=== PATIENT | female | born 1985 | race Caucasian/White ===

== ENCOUNTER → 2016-06-14 | Outpatient (CLI) | payer OTHER | LOC: HPND 08:34 | PROVIDERS: ATTEND Obstetrics & Gynecology | DX: O35.2XX0 Maternal care for (suspected) hereditary disease in fetus, not applicable or unspecified (principal); O99.282 Endocrine, nutritional and metabolic diseases complicating pregnancy, second trimester; E03.9 Hypothyroidism, unspecified; Z86.711 Personal history of pulmonary embolism; Z36 Encounter for antenatal screening of mother; Z3A.20 20 weeks gestation of pregnancy | CPT/HCPCS: 76811 ==

== ENCOUNTER → 2016-07-12 | Outpatient (CLI) | payer OTHER, MEDICAID | LOC: HPND 09:05 | PROVIDERS: ATTEND Obstetrics & Gynecology | DX: O35.2XX0 Maternal care for (suspected) hereditary disease in fetus, not applicable or unspecified (principal) | CPT/HCPCS: 76816; 76825; 76827; 93325 ==

== ENCOUNTER → 2016-08-09 | Outpatient (CLI) | payer OTHER, MEDICAID | LOC: HPND 09:02 | PROVIDERS: ATTEND Obstetrics & Gynecology | DX: O35.2XX0 Maternal care for (suspected) hereditary disease in fetus, not applicable or unspecified (principal); Z3A.00 Weeks of gestation of pregnancy not specified | CPT/HCPCS: 76816 ==

== ENCOUNTER 2017-11-01 05:06 | Inpatient (IN) | payer OTHER ==
[~2017-11-01] VITALS: Ht 157.5 cm; Wt 144.3 kg
[~2017-11-01 05:06] MED LIST: LEVO75TA3 PO; VITA100064 PO
[2017-11-01] MEDS ORDERED: METOPROLOL TARTRATE 25 MG TAB PO PRN (05:30)
[2017-11-01] MEDS ORDERED: ceFAZolin 3,000 MG/NS 100 ML (if >120 kg) IV SCH ×2 (05:30)
[2017-11-01] MEDS ORDERED: POVIDONE IODINE 5% (ANTISEPSIS KIT) 4 APPLICATIONS EACH NARE PRN (05:30)
[2017-11-01] MEDS ORDERED: SODIUM CHLORID 0.9% 500 ML IV PRN (05:30)
[2017-11-01] MEDS ORDERED: SCOPOLAMINE 1.5 MG PATCH T-DERMAL SCH (05:30)
[2017-11-01] MEDS ORDERED: metroNIDAZOLE 500 MG INJ 100 ML IV SCH ×2 (05:30→16:00)
[2017-11-01] MEDS ORDERED: ACETAMINOPHEN 1000 MG/100 ML 100 ML IV SCH (05:30)
[2017-11-01] MEDS ORDERED: LACTATED RINGER'S 1000 ML IV PRN (05:30)
[2017-11-01] MEDS ORDERED: CHLORHEXIDINE GLUCONATE 2 % 1 PACK (2 CLOTHS) TOPICAL PRN (05:30)
[2017-11-01] MEDS ORDERED: APREPITANT 40 MG CAP PO SCH (05:30)
[2017-11-01] MEDS ORDERED: ONDANSETRON HCL 4 MG/2 ML VIAL IV PUSH SCH (05:30)
[2017-11-01] MEDS ORDERED: ONDANSETRON ODT 4 MG TAB ONE (07:29)
[2017-11-01] MEDS ORDERED: PROPOFOL 500 MG/50 ML INJ 0 ML ONE (09:10)
[2017-11-01] MEDS ORDERED: DEXMEDETOMIDINE HCL 200 MCG/2 ML VIAL ONE (09:11)
[2017-11-01] MEDS ORDERED: KETAMINE HCL 50 MG/5 ML SYRINGE ONE ×2 (09:11)
[2017-11-01] MEDS ORDERED: diphenhydrAMINE HCL 50 MG/ML VIAL ONE (11:08)
[2017-11-01] MEDS ORDERED: ceFAZolin INJ 1,000 MG VIAL ONE (11:12)
[2017-11-01] MEDS ORDERED: ceFAZolin 2 GM PREMIX 50 ML ONE (11:12)
[2017-11-01] MEDS ORDERED: KETOROLAC TROMETHAMINE 30 MG/ML (IVP) VIAL IV PUSH ONE (12:00)
[2017-11-01] MEDS ORDERED: GLYCOPYRROLATE 1 MG/5 ML SYRINGE IV PUSH ONE (12:00)
[2017-11-01] MEDS ORDERED: LIDOCAINE HCL 1% PF 5 ML SYRINGE OTHER ONE (12:00)
[2017-11-01] MEDS ORDERED: ONDANSETRON HCL 4 MG/2 ML VIAL IV PUSH ONE (12:00)
[2017-11-01] MEDS ORDERED: LACTATED RINGER'S 1000 ML INJ 1,000 ML IV ONE (12:00)
[2017-11-01] MEDS ORDERED: VECURONIUM BROMIDE 20 MG VIAL IV ONE (12:00)
[2017-11-01] MEDS ORDERED: ROCURONIUM INJ 50 MG/5 ML SYRINGE IV PUSH ONE (12:00)
[2017-11-01] MEDS ORDERED: DEXAMETHASONE SOD PHOS 4 MG/ML VIAL IV ONE (12:00)
[2017-11-01] MEDS ORDERED: NEOSTIGMINE 5 MG/5 ML SYRINGE IV PUSH ONE (12:00)
[2017-11-01] MEDS ORDERED: NORMOSOL R INJ 1,000 ML IV ONE (12:00)
[2017-11-01] MEDS ORDERED: ePHEDrine/NS 25 MG/5 ML SYRINGE IV ONE (12:00)
[2017-11-01] MEDS ORDERED: SUCCINYLCHOLINE CHLORIDE 100 MG/5 ML SYRINGE IV PUSH ONE (12:00)
[2017-11-01] MEDS ORDERED: PROPOFOL 200 MG/20 ML AMP IV ONE (12:00)
[2017-11-01] MEDS ORDERED: PROPOFOL 500 MG/50 ML INJ 150 ML ONE (14:26)
[2017-11-01] MEDS ORDERED: Post-op Orders (for Pharmacy) OTHER ONE (15:30)
[2017-11-01] MEDS ORDERED: MIDAZOLAM HCL 2 MG/2 ML VIAL ONE (15:49)
[2017-11-01] MEDS ORDERED: MORPHINE SULFATE 30 MG/30 ML PCA ONE (15:52)
[2017-11-01] MEDS ORDERED: MORPHINE SULFATE 30 MG/30 ML PCA IV SCH (16:00)
[2017-11-01] MEDS ORDERED: diphenhydrAMINE HCL ELIXIR 12.5 MG/5 ML CUP PO PRN (16:00)
[2017-11-01] MEDS ORDERED: ACETAMINOPHEN 325MG/HYDROcodone 7.5MG/15ML UDC PO PRN (16:00)
[2017-11-01] MEDS: 1/2 NS + KCL 20 MEQ INJ 1,000 ML IV SCH ×2 (16:00→20:47)
[2017-11-01] MEDS ORDERED: SODIUM CHLORIDE 0.9% FLUSH 10 ML FLUSH IV FLUSH PRN (16:00)
[2017-11-01] MEDS ORDERED: NALOXONE HCL 0.4 MG/ML AMP IV PUSH PRN (16:00)
[2017-11-01] MEDS: RESP: ALBUTEROL 2.5 MG/3 ML NEB (SCH) INH ×3 (16:00→23:19)
[2017-11-01] MEDS ORDERED: diphenhydrAMINE HCL 50 MG/ML VIAL IV PUSH PRN (16:00)
[2017-11-01] MEDS ORDERED: ENALAPRILAT 1.25 MG/ML VIAL IV PUSH PRN (16:00)
[2017-11-01] MEDS ORDERED: *MEPERIDINE 25 MG INJ VIAL PERIprocedural Use ONLY ONE (16:02)
[2017-11-01] MEDS ORDERED: *morphine SULFATE 4 MG/ML PERIprocedure ONLY ONE (16:03)
[2017-11-01] MEDS ORDERED: ONDANSETRON ODT 4 MG TAB PO PRN (16:15)
[2017-11-01] MEDS: METOCLOPRAMIDE HCL 10 MG/2 ML VIAL IV PUSH SCH ×2 (17:00→20:46)
[2017-11-01] MEDS ORDERED: DO NOT ADM ANY ANTICOAGULANT DRUGS PRN (17:15)
[2017-11-01] MEDS ORDERED: *RESP: ALBUTEROL 2.5 MG/3 ML NEB (PRN) PERIprocedural Use ONLY NEB ONE (17:15)
--- NOTE | 2017-11-01 18:05 | MP ---
cc: Nish Rivas MD DATE OF OPERATION: 11/01/2017 PREOPERATIVE DIAGNOSIS: Super obesity with a body mass index of 58. POSTOPERATIVE DIAGNOSIS: Super obesity with a body mass index of 58. PROCEDURE PERFORMED: Laparoscopic duodenal switch, 150 cm alimentary tract, 120 cm common channel. SURGEON: Nish Rivas MD SAFETY PIN ASSEMBLING MACHINE OPERATOR: Jared Cottrell. Dr. Cottrell's assistance was necessary for the procedure due to the complexity of the procedure. Dr. Cottrell assisted with manipulation and exposure during the procedure. Dr. Cottrell was present for the entire procedure. ANESTHESIA: General endotracheal anesthesia. ESTIMATED BLOOD LOSS: 10 mL FINDINGS: Fatty liver. SPECIMENS: None. COMPLICATIONS: None. OPERATION IN DETAIL: The patient was brought to the operating room and placed on the operating table in a supine position. A bilateral sequential inflation device was placed on the lower extremities. General anesthesia was instituted. A Cross catheter was placed. Antibiotics were initiated. The abdomen was prepped and draped sterilely. A point in the periumbilical region was anesthetized with 0.25% Marcaine with epinephrine. A skin incision was made. A 5 mm Optiview port was placed under direct vision and pneumoperitoneum created. Under direct vision two 12 mm left upper quadrant and a 5 mm left lower quadrant port was placed. Two 12 mm right upper quadrant ports and a 5 mm epigastric port were placed. Prior to placement of all ports the skin and peritoneum were anesthetized with 0.25% Marcaine with epinephrine. The patient was placed in reverse Trendelenburg position. A Staci-Flex retractor was placed and the left lobe of the liver was retracted. The falciform ligament was taken out of the field using a 2-0 nylon suture. Attention was focused on the duodenum. The pylorus was identified. A point 3 cm distal along the duodenum was identified. The peritoneum both medially and laterally along the duodenal bulb was dissected minimally using the Harmonic scalpel. The posterior duodenal space was further dissected using a Gold Finger followed by the laparoscopic band passer. The duodenum was then stapled 3 cm distal to the pylorus using the [place] Flex power stapler blue load. Bleeding points were controlled using the Harmonic. Attention was then focused on the stomach. The patient was placed with her left side up. The vasculature along the greater curvature of the stomach was using the Harmonic scalpel starting a distance of approximately 10 cm proximal to the pylorus. This was carried towards the angle of His. The angle of His was taken down sharply. The posterior ligamentous attachment was sharply . A 36-[place] ViSiGi bougie was placed at the start of the case. Division of the stomach was then started approximately 10 cm proximal to the pylorus. This was performed using an [place] Flex stapler. This was carried towards the angle of His to excise approximately 60% of the stomach. The bougie was used as a guide and the stapler at no point was hugging the bougie. The first firing was with a green load followed by three gold loads. All staple loads were reinforced with Seamguard. The gastrocolic ligament was then sutured to the posterior leaflet of the Seamguard. Attention was then focused on the lower abdomen. The patient was placed in Trendelenburg position. The ileocecal valve was identified. The bowel was measured proximally from the ileocecal valve to a distance of 120 cm. This was to be the common channel. This was marked with hemoclips. The regimen was carried further from this rosa another 150 cm proximally. The small bowel was divided in this region using an [place] Flex stapler white load. The distal segment was marked. It was then brought up to the duodenum and a duodenoileostomy was created using a single layer handsewn anastomosis. The biliopancreatic limb was then brought down to the clips that were marked initially at 120 cm and a ileoileostomy was created using an [place] Flex stapler white load. Two firings were taken, one proximally and one distally to create the anastomosis. The defect was then closed in a single layer of running 2-0 Vicryl. The defect at the ileostomy in the mesentery was then closed with 2-0 silk suture in a running manner. Attention was then focused back at the duodenoileostomy. The bowel was clamped distal to the anastomosis. Methylene blue diluted with saline was instilled through the ViSiGi. The stomach was distended as well as the proximal bowel with no evidence of extravasation. A 18F round ROSAURA was placed posterior to the gastrojejunostomy and pulled out through the 5 mm port site in the left upper quadrant. Evicel was then placed over the duodenoileostomy and ileoileostomy. The Staci-Flex retractor was then removed. The CO2 was released. All ports were removed. All skin incisions were closed with 4-0 Monocryl. The patient was awakened and taken to the recovery room stable. MD MED Gary/ALVINO , 05:46 PM , 06:03 PM ERLIN
[2017-11-01 20:00] VITALS: BP 129/77; PULSE 63; RESP 15; TEMP 97.4; O2SAT 91
[2017-11-01] MEDS: ENOXAPARIN SODIUM 40 MG/0.4 ML SYRINGE SQ SCH ×2 (20:00→20:45)
[2017-11-01] MEDS: metroNIDAZOLE 500 MG INJ 100 ML IV SCH (20:43)
[2017-11-01] MEDS: SODIUM CHLORIDE 0.9% FLUSH 10 ML FLUSH IV FLUSH SCH (20:44)
[2017-11-01] MEDS: ACETAMINOPHEN 1000 MG/100 ML 100 ML IV SCH (20:44)
[2017-11-01 21:47] VITALS: O2SAT 98
[2017-11-01] MEDS: PCA - TOTAL MG MORPHINE DELIVERED PER SHIFT SCH (22:00)
[2017-11-02] VITALS (8 sets, daily range): BP systolic 119–144; BP diastolic 65–80; PULSE 60–78; RESP 15–19; TEMP 97.5–99.5; O2SAT 95–100
[2017-11-02] MEDS: ACETAMINOPHEN 1000 MG/100 ML 100 ML IV SCH ×3 (02:59→17:05)
[2017-11-02] MEDS: metroNIDAZOLE 500 MG INJ 100 ML IV SCH ×2 (03:00→11:52)
[2017-11-02] MEDS: METOCLOPRAMIDE HCL 10 MG/2 ML VIAL IV PUSH SCH ×2 (03:01→08:07)
[2017-11-02] MEDS: 1/2 NS + KCL 20 MEQ INJ 1,000 ML IV SCH ×4 (03:01→23:57)
[2017-11-02] MEDS: RESP: ALBUTEROL 2.5 MG/3 ML NEB (SCH) INH ×6 (04:03→23:22)
[2017-11-02] MEDS: PCA - TOTAL MG MORPHINE DELIVERED PER SHIFT SCH ×2 (05:36→14:00)
[2017-11-02 06:19] LABS: AUTOMATED NEUTROPHIL # 9.3 TH/MM3 (1.8-7.7); BASOPHIL % 0.1 % (0.0-2.0); HEMATOCRIT 44.3 % (35.0-46.0); HEMOGLOBIN 14.3 GM/DL (11.6-15.3); LYMPH % 9.2 % (9.0-44.0); MEAN CELL VOLUME 81.7 FL (80.0-100.0); MEAN CORPUSCULAR HEMOGLOBIN 26.3 PG (27.0-34.0); MEAN CORPUSCULAR HGB CONC 32.2 % (32.0-36.0); MEAN PLATELET VOLUME 9.8 FL (7.0-11.0); MONO % 9.2 % (0.0-8.0); NEUT % 81.5 % (16.0-70.0); PLATELET COUNT 164 TH/MM3 (150-450); RED BLOOD COUNT 5.43 MIL/MM3 (4.00-5.30); RED CELL DISTRIBUTION WIDTH 14.4 % (11.6-17.2); WHITE BLOOD COUNT 11.3 TH/MM3 (4.0-11.0)
[2017-11-02 06:34] LABS: BICARBONATE 22.4 MEQ/L (21.0-32.0); CALCIUM 8.3 MG/DL (8.5-10.1); CREATININE 0.77 MG/DL (0.50-1.00); MAGNESIUM 2.3 MG/DL (1.5-2.5)
[2017-11-02] MEDS: PANTOPRAZOLE SOD 40 MG DELAYED RELEASE TAB PO SCH (08:07)
[2017-11-02] MEDS: SODIUM CHLORIDE 0.9% FLUSH 10 ML FLUSH IV FLUSH SCH ×2 (08:22→20:05)
[2017-11-02] MEDS: LEVOTHYROXINE SODIUM 75 MCG TAB PO SCH (10:49)
--- NOTE | 2017-11-02 11:34 | HHI.PR ---
Subjective Subjective Notes Painful today, some increased nausea Objective Vitals/I&O Vital Signs Date Time Temp Pulse Resp B/P (MAP) Pulse Ox O2 Delivery O2 Flow Rate FiO2 11/02/17 08:00 97.9 60 18 134/80 (98) 95 11/01/17 21:47 21 11/01/17 17:30 Nasal Cannula 2 Labs Laboratory Tests Test 11/02/17 05:20 11/02/17 10:01 White Blood Count 11.3 Red Blood Count 5.43 Hemoglobin 14.3 Hematocrit 44.3 Mean Corpuscular Volume 81.7 Mean Corpuscular Hemoglobin 26.3 Mean Corpuscular Hemoglobin Concent 32.2 Red Cell Distribution Width 14.4 Platelet Count 164 Mean Platelet Volume 9.8 Neutrophils (%) (Auto) 81.5 Lymphocytes (%) (Auto) 9.2 Monocytes (%) (Auto) 9.2 Eosinophils (%) (Auto) 0.0 Basophils (%) (Auto) 0.1 Neutrophils # (Auto) 9.3 Lymphocytes # (Auto) 1.0 Monocytes # (Auto) 1.0 Eosinophils # (Auto) 0.0 Basophils # (Auto) 0.0 CBC Comment DIFF FINAL Differential Comment Blood Urea Nitrogen 7 Creatinine 0.77 Random Glucose 106 Calcium Level 8.3 Magnesium Level 2.3 Sodium Level 139 Potassium Level 4.2 Chloride Level 106 Carbon Dioxide Level 22.4 Anion Gap 11 Estimat Glomerular Filtration Rate 88 Cardiovascular: Regular Lungs: Clear Abdomen: Post-op tenderness Extremities: Perfused Wound Wound : Wound Location: Abdomen Appearance: Clean & Dry A/P Assessment and Plan 32yo F POD#1 laparoscopic duodenal switch -D/C love -Restart levothyroxine -start fluids at 30ml every 30ml The exam, history, and the medical decision-making described in the above note were completed with the assistance of the mid-level provider. I reviewed and agree with the findings presented. I attest that I had a [id number] encounter with the patient on the same day, and personally performed and documented my assessment and findings in the medical record. Discharge Planning D/C home probably Monday Radha Higgins Nov 02, 2017 11:34 Nish Rivas MD Nov 02, 2017 18:44
[2017-11-02] MEDS ORDERED: BENZOCAINE-MENTHOL (SUGAR FREE) 15 MG-3.6 MG LOZENGE BUCCAL ONE (12:00)
[2017-11-02] MEDS ORDERED: METOCLOPRAMIDE HCL 10 MG/2 ML VIAL IV PUSH PRN (16:00)
[2017-11-02] MEDS: ENOXAPARIN SODIUM 40 MG/0.4 ML SYRINGE SQ SCH (20:07)
[2017-11-02] MEDS: ACETAMINOPHEN 325MG/HYDROcodone 7.5MG/15ML UDC PO PRN (20:07)
[2017-11-03] VITALS (7 sets, daily range): BP systolic 123–140; BP diastolic 60–76; PULSE 55–100; RESP 16–18; TEMP 97.4–99.4; O2SAT 95–100
[2017-11-03] MEDS: RESP: ALBUTEROL 2.5 MG/3 ML NEB (SCH) INH ×3 (03:36→12:00)
[2017-11-03] MEDS: ACETAMINOPHEN 325MG/HYDROcodone 7.5MG/15ML UDC PO PRN ×2 (04:03→12:06)
[2017-11-03] MEDS: LEVOTHYROXINE SODIUM 75 MCG TAB PO SCH (05:45)
[2017-11-03] MEDS: 1/2 NS + KCL 20 MEQ INJ 1,000 ML IV SCH ×2 (05:50→11:58)
[2017-11-03] MEDS: SODIUM CHLORIDE 0.9% FLUSH 10 ML FLUSH IV FLUSH SCH (07:41)
[2017-11-03] MEDS: PANTOPRAZOLE SOD 40 MG DELAYED RELEASE TAB PO SCH (07:41)
--- NOTE | 2017-11-03 12:34 | HHI.PR ---
Subjective Subjective Notes Pain is much better Slowly increasing PO fluids Objective Vitals/I&O Vital Signs Date Time Temp Pulse Resp B/P (MAP) Pulse Ox O2 Delivery O2 Flow Rate FiO2 11/03/17 12:00 99.0 98 16 140/65 (90) 97 11/03/17 03:36 21 11/01/17 17:30 Nasal Cannula 2 Abdomen: Post-op tenderness Extremities: Perfused Wound Wound : Wound Location: Abdomen Appearance: Clean & Dry (LLQ ROSAURA with small amount of serosanguinous drainage ) A/P Assessment and Plan 32yo F POD#2 laparoscopic duodenal switch -Increase fluids to 60ml Q 30min -Continue with frequent ambulation Discharge Planning D/C home late this evening Radha Higgins Nov 03, 2017 12:34
[2017-11-03 16:13] LABS: AMYLASE BODY FLUID 123 U/L; AMYLASE BODY FLUID TYPE PERITONEAL
== END 2017-11-03 19:10 | disposition home or self-care (01) | DRG 621 ==
LOC: HSDI 05:06 → N07A 17:41
PROVIDERS: ADMIT Surgery; ATTEND Surgery
PROC: 0DB64ZZ Excision of Stomach, Percutaneous Endoscopic Approach (ICD-10-PCS; 2017-11-01)
PROC: 0D194ZB Bypass Duodenum to Ileum, Percutaneous Endoscopic Approach (ICD-10-PCS; principal; 2017-11-01 11:05)
DX: E66.9 Obesity, unspecified (principal); K76.0 Fatty (change of) liver, not elsewhere classified; K21.9 Gastro-esophageal reflux disease without esophagitis; E03.9 Hypothyroidism, unspecified; Z68.43 Body mass index [BMI] 50.0-59.9, adult; Z86.718 Personal history of other venous thrombosis and embolism; Z91.040 Latex allergy status; Z91.013 Allergy to seafood
CPT/HCPCS: 80048; 82150; 83735; 85025; 94150; 94640; 94664; J0131; J0330; J0690; J1100; J1200; J1650; J1885; J2175; J2250; J2270; J2405; J2710; J2765; J3010; J7120; J7613; J8501